=== PATIENT | male | born 1975 | race Caucasian/White ===

== ENCOUNTER 2018-08-29 13:04 | Emergency (ER) | payer MEDICAID ==
[~2018-08-29] VITALS: Ht 170.2 cm; Wt 101.6 kg
--- NOTE | 2018-08-29 13:35 | NUR ---
PATIENT WAS MSE BY DR TORRES IN ROOM 03A.
[2018-08-29] MEDS ORDERED: IBUPROFEN 800 MG TABLET PO ONE (13:45)
[2018-08-29] MEDS ORDERED: IBUPROFEN 800 MG TABLET ONE (13:46)
--- NOTE | 2018-08-29 14:30 | NUR ---
PATIENT IN BED NO S/S ANY DISTRESS. A & O X4
--- NOTE | 2018-08-29 15:00 | NUR ---
Patient eloped from facility. ER physician notified.
== END 2018-08-29 15:00 | disposition left against medical advice (07) ==
LOC: ER 13:04
DX: S13.4XXA Sprain of ligaments of cervical spine, initial encounter (principal); V89.2XXA Person injured in unspecified motor-vehicle accident, traffic, initial encounter; Y93.89 Activity, other specified; Y92.89 Other specified places as the place of occurrence of the external cause; Y99.8 Other external cause status
CPT/HCPCS: A4663